=== PATIENT | male | born 1960 | race Caucasian/White ===

== ENCOUNTER 2019-11-08 15:45 | Emergency (ER) | payer BC ==
[2019-11-08] MEDS ORDERED: MORPHINE 4 MG/ML 1ML VIAL/SYRINGE (J2270) As Ordered ONE (16:49)
[2019-11-08] MEDS ORDERED: CEPHALEXIN 500 MG CAP As Ordered ONE (19:18)
[2019-12-04 12:36] LABS: APPEARANCE, URINE HAZY (CLEAR); BACTERIA, URINE AUTO NEGATIVE (NEGATIVE); BILIRUBIN, URINE AUTO NEGATIVE (NEGATIVE); BLOOD, URINE BLOOD NEGATIVE (NEGATIVE); COLOR, URINE YELLOW (YELLOW); GLUCOSE, URINE (UA) AUTO NEGATIVE (NEGATIVE); KETONE, URINE AUTO TRACE mg/dL (NEGATIVE); LEUKOCYTE ESTERASE, URINE AUTO 2+ (NEGATIVE); MUCUS, URINE SMALL (NEGATIVE); NITRITE, URINE AUTO NEGATIVE (NEGATIVE); PROTEIN, URINE AUTO NEGATIVE (NEGATIVE); RBC, URINE AUTO 2 /HPF (0-3); SPECIFIC GRAVITY URINE AUTO 1.018 (1.002-1.035); SQUAMOUS EPITHELIAL CELL UR AU 0 /HPF (0-6); UROBILINOGEN, URINE AUTO 0.2 mg/dL (0.0-2.0); WBC, URINE AUTO 36 /HPF (0-3)
[2019-12-04 12:37] LABS: INR 0.88; PARTIAL THROMBOPLASTIN TIME 28.5 SECONDS (25.0-38.4); PROTHROMBIN TIME 12.1 SECONDS (11.8-14.0)
[2019-12-04 15:35] LABS: BASO # 0.1 10^3/uL (0.0-0.2); BASO % 0.8 % (0.0-1.0); EOS % 0.5 % (0.0-3.0); HEMATOCRIT 40.6 % (42.0-52.0); LYMPH # 1.1 10^3/uL (1.5-5.0); LYMPH % 14.2 % (24.0-44.0); MEAN CORPUSCULAR HEMOGLOBIN 31.7 pg (27.0-33.0); MEAN CORPUSCULAR HGB CONC 34.5 g/dl (32.0-36.5); MEAN CORPUSCULAR VOLUME 91.9 fl (80.0-96.0); MONO # 0.9 10^3/uL (0.0-0.8); NEUTROPHILS # 5.4 10^3/uL (1.5-8.5); NEUTROPHILS % 72.4 % (36.0-66.0); PLATELET COUNT, AUTOMATED 358 10^3/uL (150-450); RED BLOOD COUNT 4.42 10^6/uL (4.30-6.10); WHITE BLOOD COUNT 7.5 10^3/uL (4.0-10.0)
[2019-12-15 09:44] LABS: ALBUMIN 4.4 GM/DL (3.2-5.2); ALT/SGPT 21 U/L (12-78); BILIRUBIN,DIRECT 0.2 MG/DL (0.0-0.2); BILIRUBIN,TOTAL 0.5 MG/DL (0.2-1.0); BLOOD UREA NITROGEN 10 MG/DL (7-18); CALCIUM LEVEL 9.8 MG/DL (8.5-10.1); CARBON DIOXIDE LEVEL 28 MEQ/L (21-32); CHLORIDE LEVEL 91 MEQ/L (98-107); CREATININE FOR GFR 1.09 MG/DL (0.70-1.30); GLOMERULAR FILTRATION RATE > 60.0 (>56); GLUCOSE, FASTING 110 MG/DL (70-100); LIPASE 144 U/L (73-393); SODIUM LEVEL 129 MEQ/L (136-145); TOTAL PROTEIN 8.3 GM/DL (6.4-8.2)
--- NOTE | 2020-01-01 16:27 | REP ---
CT OF THE ABDOMEN WITHOUT CONTRAST: HISTORY: Abdominal pain. TECHNIQUE: Axial noncontrast images from the lung bases to the pubic symphysis with coronal and sagittal reformations. FINDINGS: The lung bases are clear. The visualized portions of the heart and pericardium are normal. The liver, spleen, pancreas, gallbladder, bilateral adrenal glands and kidneys are essentially normal for noncontrast evaluation. Evaluation of the enteric system demonstrates normal terminal ileum and appendix in the right lower quadrant. Colonic and sigmoid diveritculosis noted without acute diverticulitis. The pelvis demonstrates collapsed bladder and age appropriate prostate/seminal vesicles. There is evidence for a bifemoral arterial graft along with right common femoral arterial stent graft. Atherosclerotic changes to the aorta and vasculature are noted without aneurysm. No ascites. No free air. No adenopathy. Musculoskeletal structures demonstrate degenerative changes without focal acute abnormality. IMPRESSION: 1. Diverticulosis without acute diverticulitis. 2. Degenerative changes to the skeletal structures. 3. No acute ascites, focal inflammatory stranding or adenopathy. MTDD
--- NOTE | 2020-01-01 16:28 | REP ---
SCROTAL ULTRASOUND: HISTORY: Scrotal and testicular pain. TECHNIQUE: Real time, dick scale and color Doppler evaluation using linear high frequency and curved array transducers. FINDINGS: The bilateral testicles and epididymides are normal in contour, size, echogenicity and vascularity without evidence for torsion, infection/inflammatory process or mass lesion. No hydrocele. No varicocele. The right testicle measures 4.2 x 1.7 x 3.3 cm. The left testicle measures 4.6 x 2.3 x 3.1 cm. IMPRESSION: Normal scrotal ultrasound. MTDD
== END 2019-11-08 19:25 | disposition home or self-care (01) ==
LOC: M ED 15:45
DX: N39.0 Urinary tract infection, site not specified (principal); I10 Essential (primary) hypertension; M54.9 Dorsalgia, unspecified; E78.49 Other hyperlipidemia; Z79.82 Long term (current) use of aspirin; Z79.899 Other long term (current) drug therapy; Z79.01 Long term (current) use of anticoagulants; Z86.718 Personal history of other venous thrombosis and embolism; Z95.820 Peripheral vascular angioplasty status with implants and grafts
CPT/HCPCS: 74176; 76870; 80048; 80076; 81001; 83690; 85025; 85610; 85730; 87086; 93976; 96374; 99284; J2270

== ENCOUNTER → 2021-01-05 | Outpatient (REF) | payer BC ==
[2021-01-06 11:21] LABS: BASO # 0.1 10^3/uL (0.0-0.2); BASO % 1.6 % (0.0-1.0); EOS # 0.1 10^3/uL (0.0-0.5); EOS % 1.9 % (0.0-3.0); HEMATOCRIT 35.9 % (42.0-52.0); HEMOGLOBIN 12.1 g/dl (13.5-17.5); LYMPH # 1.7 10^3/uL (1.5-5.0); LYMPH % 25.8 % (24.0-44.0); MEAN CORPUSCULAR HEMOGLOBIN 31.3 pg (27.0-33.0); MEAN CORPUSCULAR HGB CONC 33.7 g/dl (32.0-36.5); MONO % 15.9 % (2.0-8.0); NEUTROPHILS # 3.5 10^3/uL (1.5-8.5); NEUTROPHILS % 54.5 % (36.0-66.0); PLATELET COUNT, AUTOMATED 346 10^3/uL (150-450); RED BLOOD COUNT 3.86 10^6/uL (4.30-6.10); WHITE BLOOD COUNT 6.4 10^3/uL (4.0-10.0)
[2021-01-06 12:08] LABS: ALBUMIN 3.9 GM/DL (3.2-5.2); ALT/SGPT 22 U/L (12-78); BILIRUBIN,TOTAL 0.3 MG/DL (0.2-1.0); BLOOD UREA NITROGEN 17 MG/DL (7-18); CARBON DIOXIDE LEVEL 29 MEQ/L (21-32); CHLORIDE LEVEL 96 MEQ/L (98-107); CHOLESTEROL LEVEL 194 MG/DL (<200); CHOLESTEROL RISK RATIO 1.763 (<5); CREATININE FOR GFR 1.21 MG/DL (0.70-1.30); FREE T4 0.96 NG/DL (0.76-1.46); GLOMERULAR FILTRATION RATE > 60.0 (>56); GLUCOSE, FASTING 88 MG/DL (70-100); HDL CHOLESTEROL 110 MG/DL (>40); LDL CHOLESTEROL 67 MG/DL (<100); NON-HDL-C 84 MG/DL; SODIUM LEVEL 130 MEQ/L (136-145); TOTAL PROTEIN 7.3 GM/DL (6.4-8.2); TRIGLYCERIDES LEVEL 87 MG/DL (<150)
== END ==
LOC: M SFHCCLAY 15:12
PROVIDERS: ATTEND Nurse Practitioner Family
DX: I10 Essential (primary) hypertension (principal); I73.9 Peripheral vascular disease, unspecified

== ENCOUNTER → 2021-08-28 | Outpatient (REF) | payer BC ==
[2021-08-29 12:25] LABS: BASO # 0.1 10^3/uL (0.0-0.2); BASO % 0.8 % (0.0-1.0); EOS # 0.1 10^3/uL (0.0-0.5); EOS % 0.8 % (0.0-3.0); HEMATOCRIT 33.9 % (42.0-52.0); HEMOGLOBIN 11.7 g/dl (13.5-17.5); LYMPH # 1.3 10^3/uL (1.5-5.0); LYMPH % 16.4 % (24.0-44.0); MEAN CORPUSCULAR HEMOGLOBIN 31.9 pg (27.0-33.0); MEAN CORPUSCULAR HGB CONC 34.5 g/dl (32.0-36.5); MEAN CORPUSCULAR VOLUME 92.4 fl (80.0-96.0); MONO # 0.9 10^3/uL (0.0-0.8); MONO % 11.9 % (2.0-8.0); NEUTROPHILS # 5.4 10^3/uL (1.5-8.5); NEUTROPHILS % 69.7 % (36.0-66.0); PLATELET COUNT, AUTOMATED 360 10^3/uL (150-450); RED BLOOD COUNT 3.67 10^6/uL (4.30-6.10); WHITE BLOOD COUNT 7.7 10^3/uL (4.0-10.0)
[2021-08-29 12:59] LABS: ALBUMIN 4.2 GM/DL (3.2-5.2); BILIRUBIN,TOTAL 0.4 MG/DL (0.2-1.0); CALCIUM LEVEL 9.2 MG/DL (8.8-10.2); CHOLESTEROL RISK RATIO 1.683 (<5); CREATININE FOR GFR 1.39 MG/DL (0.70-1.30); FREE T4 0.84 NG/DL (0.76-1.46); GLOMERULAR FILTRATION RATE 55.5 (>49); POTASSIUM SERUM 4.1 MEQ/L (3.5-5.1); THYROID STIMULATING HORMONE 1.7 uIU/ML (0.358-3.740); TOTAL PROTEIN 7.4 GM/DL (6.4-8.2)
== END ==
LOC: M SFHCCLAY 14:41
PROVIDERS: ATTEND Nurse Practitioner Family
DX: I10 Essential (primary) hypertension (principal); I73.9 Peripheral vascular disease, unspecified; Z87.891 Personal history of nicotine dependence

== ENCOUNTER → 2023-08-02 | Outpatient (REF) | payer BC ==
[2023-08-02 18:23] LABS: BASO # 0.1 10^3/uL (0.0-0.2); EOS # 0.1 10^3/uL (0.0-0.5); EOS % 1.3 % (0.0-3.0); HEMATOCRIT 35.3 % (42.0-52.0); HEMOGLOBIN 12.1 g/dl (13.5-17.5); LYMPH % 14.7 % (24.0-44.0); MEAN CORPUSCULAR HEMOGLOBIN 32.1 pg (27.0-33.0); MEAN CORPUSCULAR HGB CONC 34.3 g/dl (32.0-36.5); MEAN CORPUSCULAR VOLUME 93.6 fl (80.0-96.0); MONO # 0.7 10^3/uL (0.0-0.8); MONO % 9.8 % (2.0-8.0); NEUTROPHILS % 72.9 % (36.0-66.0); PLATELET COUNT, AUTOMATED 354 10^3/uL (150-450); RED BLOOD COUNT 3.77 10^6/uL (4.30-6.10); WHITE BLOOD COUNT 6.9 10^3/uL (4.0-10.0)
[2023-08-02 18:55] LABS: ALBUMIN 3.6 G/DL (3.2-5.2); ALKALINE PHOSPHATASE 73 U/L (46-116); ALT/SGPT 19 U/L (7.0-40); AST/SGOT 13 U/L (<34); BILIRUBIN,TOTAL 0.4 MG/DL (0.3-1.2); BLOOD UREA NITROGEN 12 MG/DL (9-23); CALCIUM LEVEL 9.4 MG/DL (8.3-10.6); CARBON DIOXIDE LEVEL 30 MMOL/L (20-31); CHLORIDE LEVEL 95 MMOL/L (98-107); CHOLESTEROL LEVEL 167 MG/DL (<200); CHOLESTEROL RISK RATIO 1.58 (<5); CREATININE FOR GFR 0.94 MG/DL (0.70-1.30); FREE T4 1.16 NG/DL (0.89-1.76); GLOMERULAR FILTRATION RATE > 60.0 (>49); GLUCOSE, FASTING 115 MG/DL (74-106); HDL CHOLESTEROL 105.5 MG/DL (>40); LDL CHOLESTEROL 50.5 MG/DL (<100); NON-HDL-C 61.5 MG/DL; POTASSIUM SERUM 4.5 MMOL/L (3.5-5.1); SODIUM LEVEL 130 MMOL/L (136-145); THYROID STIMULATING HORMONE 0.988 uIU/ML (0.55-4.78); TOTAL PROTEIN 6.6 G/DL (5.7-8.2); TRIGLYCERIDES LEVEL 55 MG/DL (<150)
== END ==
LOC: M SFHCCLAY 10:50
PROVIDERS: ATTEND Nurse Practitioner Family
DX: I10 Essential (primary) hypertension (principal); F51.04 Psychophysiologic insomnia; Z56.6 Other physical and mental strain related to work

== ENCOUNTER → 2023-08-16 | Outpatient (REF) | payer BC ==
[2023-08-16 17:48] LABS: PERCENT SATURATION 40.5 % (19.7-50.0)
[2023-08-16 17:50] LABS: FERRITIN 101.3 NG/ML (10.5-307.3)
[2023-08-16 17:52] LABS: FOLATE 13.56 NG/ML (>5.4)
== END ==
LOC: M SFHCCLAY 14:50
PROVIDERS: ATTEND Nurse Practitioner Family
DX: D64.9 Anemia, unspecified (principal)

== ENCOUNTER → 2024-10-13 | Outpatient (CLI) | payer BC | LOC: M CLY 08:32 | PROVIDERS: ATTEND Physician Assistant | DX: M25.561 Pain in right knee (principal); M25.562 Pain in left knee; Z53.9 Procedure and treatment not carried out, unspecified reason ==

== ENCOUNTER → 2024-10-23 | Outpatient (REF) | payer BC | LOC: M LAB REF 16:52 | PROVIDERS: ATTEND Neuromusculoskeletal Medicine, Sports Medicine | DX: M17.0 Bilateral primary osteoarthritis of knee (principal) ==

== ENCOUNTER → 2024-11-17 | Outpatient (CLI) | payer BC ==
[~2024-11-17] MED LIST: AMLO1TAB24 PO; ASPI81TA26 PO; ATOR1TAB19 PO; CLOP75TA2 PO; HYDR50TA70 PO; IRBE150T14 PO; LEXA1TAB PO
[2024-11-17 15:03] LABS: BASO # 0.1 10^3/uL (0.0-0.2); BASO % 0.8 % (0.0-1.0); EOS # 0.1 10^3/uL (0.0-0.5); EOS % 1.5 % (0.0-3.0); LYMPH # 1.3 10^3/uL (1.5-5.0); LYMPH % 22.1 % (24.0-44.0); MONO # 0.7 10^3/uL (0.0-0.8); MONO % 12.1 % (2.0-8.0); NEUTROPHILS # 3.8 10^3/uL (1.5-8.5); NEUTROPHILS % 63.2 % (36.0-66.0); PLATELET COUNT, AUTOMATED 376 10^3/uL (150-450)
[2024-11-17 15:36] LABS: ALT/SGPT 18 U/L (7.0-40); AST/SGOT 18 U/L (<34); CALCIUM LEVEL 9.5 MG/DL (8.3-10.6); CARBON DIOXIDE LEVEL 29 MMOL/L (20-31); CHLORIDE LEVEL 91 MMOL/L (98-107); CREATININE FOR GFR 0.94 MG/DL (0.70-1.30); GLOMERULAR FILTRATION RATE > 90.0 (>49); POTASSIUM SERUM 4.3 MMOL/L (3.5-5.1); SODIUM LEVEL 129 MMOL/L (136-145)
== END ==
LOC: M RAD 13:53
PROVIDERS: ATTEND Neuromusculoskeletal Medicine, Sports Medicine
DX: M17.0 Bilateral primary osteoarthritis of knee (principal)

== ENCOUNTER 2024-12-01 06:02 | Observation (INO) | payer BC ==
[~2024-12-01] VITALS: Ht 180.3 cm; Wt 60.1 kg
[2024-12-01] VITALS (9 sets, daily range): BP systolic 93–132; BP diastolic 53–73; TEMP 97.5–98; O2SAT 91–100
[2024-12-01] MEDS: LR 1,000 ML IV SCH ×3 (06:50→11:35)
[2024-12-01 07:14] LABS: INR 0.87
[2024-12-01] MEDS ORDERED: ROCURONIUM BROMIDE 50MG/5ML VIAL As Ordered ONE (07:22)
[2024-12-01] MEDS: LIDOCAINE 1% SDV 5 ML VIAL PN ONE (07:40)
[2024-12-01] MEDS ORDERED: dexAMETHasone 10 MG/1 ML VIAL PRES.FREE PN ONE (07:40)
[2024-12-01] MEDS ORDERED: MIDAZOLAM INJ 2 MG/2 ML VIAL IV PRN (07:40)
[2024-12-01] MEDS ORDERED: ROPIvacaine 0.5% 30ML VIAL PN ONE (07:40)
[2024-12-01] MEDS: MIDAZOLAM INJ 2 MG/2 ML VIAL IV PRN (08:03)
[2024-12-01] MEDS: ROPIvacaine 0.5% 30ML VIAL PN ONE (08:03)
[2024-12-01] MEDS: dexAMETHasone 10 MG/1 ML VIAL PRES.FREE PN ONE (08:03)
[2024-12-01] MEDS: ceFAZolin SODIUM 2 GM in DEXTROSE 5% (D5W) ADV/MINI-BAG 50 ML IV ONE (08:33)
[2024-12-01] MEDS: TRANEXAMIC ACID 100 MG/ML 10ML VIAL As Ordered ONE (08:33)
[2024-12-01] MEDS: VANCOMYCIN 1000MG/20ML VIAL As Ordered ONE (10:14)
[2024-12-01] MEDS: KETOROLAC 30 MG/ML 1 ML VIAL As Ordered ONE (10:24)
[2024-12-01] MEDS ORDERED: HYDROMORPHONE HCL 0.5 MG/0.5 ML SYRINGE IV PRN (10:25)
[2024-12-01] MEDS ORDERED: ONDANSETRON 4MG 2ML VIAL IV PRN ×2 (10:25→11:35)
[2024-12-01] MEDS: dexAMETHasone 4 MG/ML 1 ML VIAL IV ONE (11:52)
[2024-12-01] MEDS ORDERED: MAALOX 30 ML SUSP *UDC PO PRN (14:15)
[2024-12-01] MEDS ORDERED: ACETAMINOPHEN 325 MG TAB PO PRN (14:15)
[2024-12-01] MEDS ORDERED: MOM 30 ML SUSPENSION UDC PO PRN (14:15)
[2024-12-01] MEDS ORDERED: IRBE300T12 PO (14:24)
[2024-12-01] MEDS ORDERED: CELE0.09 PO (14:24)
[2024-12-01] MEDS ORDERED: HOME MED LIST COMPLETE! XX SCH (14:25)
[2024-12-01] MEDS: ceFAZolin SODIUM 2 GM in DEXTROSE 5% (D5W) ADV/MINI-BAG 50 ML IV SCH (16:32)
[2024-12-01] MEDS: IRBESARTAN 150 MG TAB PO SCH (20:18)
[2024-12-01] MEDS: amLODIPine 5 MG TAB PO SCH (20:19)
[2024-12-01] MEDS: ATORVASTATIN 10 MG TAB PO SCH (20:19)
[2024-12-01] MEDS: DOCUSATE SODIUM 100 MG CAPSULE PO SCH (20:19)
[2024-12-02] VITALS: BP 113/59; TEMP 98.7; O2SAT 94
[2024-12-02 04:00] VITALS: BP_SYST 105; BP_SYST 112; BP_DIAS 58; BP_DIAS 59; TEMP 98.4; TEMP 98.5; O2SAT 94; O2SAT 96
[2024-12-02 05:59] VITALS: O2SAT 93
[2024-12-02 08:21] LABS: BASO # 0.0 10^3/uL (0.0-0.2); BASO % 0.1 % (0.0-1.0); EOS # 0.0 10^3/uL (0.0-0.5); EOS % 0.0 % (0.0-3.0); LYMPH # 0.5 10^3/uL (1.5-5.0); LYMPH % 3.3 % (24.0-44.0); MONO # 1.3 10^3/uL (0.0-0.8); MONO % 9.2 % (2.0-8.0); NEUTROPHILS # 12.3 10^3/uL (1.5-8.5); NEUTROPHILS % 86.9 % (36.0-66.0); PLATELET COUNT, AUTOMATED 292 10^3/uL (150-450)
[2024-12-02 08:43] LABS: CALCIUM LEVEL 8.8 MG/DL (8.3-10.6); CARBON DIOXIDE LEVEL 28 MMOL/L (20-31); CHLORIDE LEVEL 91 MMOL/L (98-107); CREATININE FOR GFR 0.89 MG/DL (0.70-1.30); GLOMERULAR FILTRATION RATE > 90.0 (>49); MAGNESIUM LEVEL 1.6 MG/DL (1.8-2.4); POTASSIUM SERUM 4.3 MMOL/L (3.5-5.1); SODIUM LEVEL 126 MMOL/L (136-145)
[2024-12-02] MEDS: ASCORBIC ACID 500 MG TAB PO SCH (08:45)
[2024-12-02] MEDS: SENNA 8.6 MG TAB PO SCH (08:45)
[2024-12-02] MEDS: FERROUS SULFATE 325 MG TAB PO SCH (08:45)
[2024-12-02] MEDS: CLOPIDOGREL 75 MG TAB PO SCH (08:45)
[2024-12-02] MEDS: ASPIRIN 81 MG ENTERIC TABLET PO SCH (08:46)
[2024-12-02] MEDS: ESCITALOPRAM OXALATE 10 MG TABLET PO SCH (08:46)
[2024-12-02] MEDS: MAG SULF 1GM/100ML (MAG RUN) 1 GM in IV 1 EA IV ONE (10:08)
[2024-12-02] MEDS ORDERED: SENN18TA PO (10:34)
[2024-12-02] MEDS ORDERED: ASCO50TA PO (10:34)
[2024-12-02] MEDS ORDERED: FERR1TAB8 PO (10:34)
[2024-12-02] MEDS ORDERED: DILA2TAB6 PO (10:34)
[2024-12-02] MEDS ORDERED: ASPI81TA26 PO (10:35)
== END 2024-12-02 12:13 | disposition home health service (06) ==
LOC: M SDC 06:02 → M MS4PR 06:03
PROVIDERS: ADMIT Internal Medicine; ATTEND Neuromusculoskeletal Medicine, Sports Medicine
DX: M17.11 Unilateral primary osteoarthritis, right knee (principal); E83.42 Hypomagnesemia; D72.829 Elevated white blood cell count, unspecified; I73.9 Peripheral vascular disease, unspecified; E78.5 Hyperlipidemia, unspecified; I10 Essential (primary) hypertension; F41.9 Anxiety disorder, unspecified; Z95.828 Presence of other vascular implants and grafts; Z86.79 Personal history of other diseases of the circulatory system; E87.1 Hypo-osmolality and hyponatremia; Z79.899 Other long term (current) drug therapy; Z79.02 Long term (current) use of antithrombotics/antiplatelets; Z79.82 Long term (current) use of aspirin; Z87.891 Personal history of nicotine dependence
CPT/HCPCS: 27447; 36415; 73560; 80048; 83735; 85025; 85610; 88300; 96374; 96375; 96376; 97110; 97116; 97161; 97530; C1776; J0665; J0666; J0690; J1100; J1885; J2250; J2795; J3010; J3373; J3475; S2900

== ENCOUNTER → 2024-12-10 | Outpatient (REF) | payer BC ==
[~2024-12-10] MED LIST changes: +ASCO50TA PO; +CELE0.09 PO; +DILA2TAB6 PO; +FERR1TAB8 PO; +IRBE300T12 PO; +SENN18TA PO
[2024-12-10 17:41] LABS: BASO # 0.1 10^3/uL (0.0-0.2); BASO % 0.8 % (0.0-1.0); EOS # 0.1 10^3/uL (0.0-0.5); EOS % 0.8 % (0.0-3.0); LYMPH # 1.1 10^3/uL (1.5-5.0); LYMPH % 16.2 % (24.0-44.0); MONO # 1.1 10^3/uL (0.0-0.8); MONO % 16.1 % (2.0-8.0); NEUTROPHILS # 4.3 10^3/uL (1.5-8.5); NEUTROPHILS % 65.6 % (36.0-66.0); PLATELET COUNT, AUTOMATED 599 10^3/uL (150-450)
[2024-12-10 18:27] LABS: ALT/SGPT 26 U/L (7.0-40); AST/SGOT 29 U/L (<34); CALCIUM LEVEL 9.2 MG/DL (8.3-10.6); CARBON DIOXIDE LEVEL 29 MMOL/L (20-31); CHLORIDE LEVEL 96 MMOL/L (98-107); CREATININE FOR GFR 0.81 MG/DL (0.70-1.30); GLOMERULAR FILTRATION RATE > 90.0 (>49); POTASSIUM SERUM 4.0 MMOL/L (3.5-5.1); SODIUM LEVEL 132 MMOL/L (136-145)
== END ==
LOC: M SFHCCLAY 14:32
PROVIDERS: ATTEND Nurse Practitioner Family
DX: E87.1 Hypo-osmolality and hyponatremia (principal); D72.829 Elevated white blood cell count, unspecified

== ENCOUNTER → 2024-12-11 | Outpatient (CLI) | payer BC | LOC: M SOG 07:24 | PROVIDERS: ATTEND Physician Assistant | DX: M17.11 Unilateral primary osteoarthritis, right knee (principal); Z96.661 Presence of right artificial ankle joint; M25.461 Effusion, right knee ==

== ENCOUNTER → 2024-12-22 | Outpatient (REF) | payer BC ==
[2024-12-22 18:27] LABS: BASO # 0.1 10^3/uL (0.0-0.2); BASO % 0.8 % (0.0-1.0); EOS # 0.4 10^3/uL (0.0-0.5); EOS % 4.6 % (0.0-3.0); LYMPH # 1.3 10^3/uL (1.5-5.0); LYMPH % 15.1 % (24.0-44.0); MONO # 0.9 10^3/uL (0.0-0.8); MONO % 10.7 % (2.0-8.0); NEUTROPHILS # 5.7 10^3/uL (1.5-8.5); NEUTROPHILS % 68.4 % (36.0-66.0); PLATELET COUNT, AUTOMATED 730 10^3/uL (150-450)
== END ==
LOC: M SFHCCLAY 10:51
PROVIDERS: ATTEND Nurse Practitioner Family
DX: I10 Essential (primary) hypertension (principal); F51.04 Psychophysiologic insomnia; Z56.6 Other physical and mental strain related to work

== ENCOUNTER → 2024-12-28 | Outpatient (REF) | payer BC ==
[2024-12-28 12:48] LABS: BASO # 0.1 10^3/uL (0.0-0.2); BASO % 0.8 % (0.0-1.0); EOS # 0.2 10^3/uL (0.0-0.5); EOS % 2.9 % (0.0-3.0); LYMPH # 1.1 10^3/uL (1.5-5.0); LYMPH % 14.0 % (24.0-44.0); MONO # 0.8 10^3/uL (0.0-0.8); MONO % 10.0 % (2.0-8.0); NEUTROPHILS # 5.4 10^3/uL (1.5-8.5); NEUTROPHILS % 72.0 % (36.0-66.0); PLATELET COUNT, AUTOMATED 523 10^3/uL (150-450)
== END ==
LOC: M SFHCCLAY 09:39
PROVIDERS: ATTEND Nurse Practitioner Family
DX: I10 Essential (primary) hypertension (principal); F51.04 Psychophysiologic insomnia; Z56.6 Other physical and mental strain related to work